=== PATIENT | male | born 1980 | race Caucasian/White ===

== ENCOUNTER 2018-12-29 18:47 | Emergency (ER) | payer MEDICARE ==
[~2018-12-29] VITALS: Ht 172.7 cm; Wt 63.5 kg
[2018-12-29] MEDS ORDERED: IV NORMAL SALINE 1000ML BAG 1,000 ML IV SCH (19:44)
[2018-12-29] MEDS ORDERED: ONDANSETRON PF 4 MG/2 ML VIAL. IV ONE (19:45)
[2018-12-29] MEDS ORDERED: KETOROLAC 15 MG/ML VIAL. IV ONE (19:45)
[2018-12-29] MEDS ORDERED: MORPHINE SULFATE 4 MG/ML VIAL. IV ONE (19:45)
--- NOTE | 2018-12-29 19:52 | PHYS DOC ---
Past Medical History Past Medical History: Anxiety, Bipolar, Depression Past Surgical History: No Surgical History Smoking: Cigarettes, Less than 1pk/day Alcohol Use: None Drug Use: Marijuana, Methamphetamine Adult General Chief Complaint Chief Complaint: FLANK PAIN HPI HPI Patient is a 38-year-old male that presents to the ER with left flank pain. Patient states he woke up with the pain this morning. It has persisted all day and will not go away. Patient is not tried any medications at home. Associated symptoms includes headache. Denies ever having a pain like this before. Pain is 10 out of 10 and sharp. States he has not defecated in a week. Review of Systems Review of Systems Constitutional: Denies fever or chills [] Eyes: Denies change in visual acuity, redness, or eye pain [] HENT: Denies nasal congestion or sore throat [] Respiratory: Denies cough or shortness of breath [] Cardiovascular: No additional information not addressed in HPI [] GI: Reports L flank pain, but denies nausea, vomiting, bloody stools or diarrhea [] : Denies dysuria or hematuria [] Musculoskeletal: Reports back pain (L flank) but denies joint pain [] Integument: Denies rash or skin lesions [] Neurologic: Reports headache but denies focal weakness or sensory changes [] Endocrine: Denies polyuria or polydipsia [] Complete systems were reviewed and found to be within normal limits, except as documented in this note. Current Medications Current Medications Current Medications Medications (Trade) Dose Ordered Sig/Jaci Start Time Stop Time Status Last Admin Dose Admin Ketorolac Tromethamine (Toradol 15mg Vial) 15 mg 1X ONCE 12/29/18 19:45 12/29/18 19:49 DC 12/29/18 20:02 15 MG Morphine Sulfate (Morphine Sulfate) 4 mg 1X ONCE 12/29/18 19:45 12/29/18 19:49 DC 12/29/18 20:01 4 MG Ondansetron HCl (Zofran) 4 mg 1X ONCE 12/29/18 19:45 12/29/18 19:49 DC 12/29/18 20:02 4 MG Sodium Chloride 1,000 ml @ 1,000 mls/hr Q1H 12/29/18 19:44 12/29/18 20:43 DC 12/29/18 20:02 1,000 MLS/HR Allergies Allergies Allergies Coded Allergies Type Severity Reaction Last Updated Verified No Known Drug Allergies 12/29/18 No Physical Exam Physical Exam Constitutional: Well developed, well nourished, appears in pain, non-toxic appearance. [] HENT: Normocephalic, atraumatic, bilateral external ears normal, oropharynx moist, no oral exudates, nose normal. [] Eyes: PERRLA, EOMI, conjunctiva normal, no discharge. Pupils are 2 bilaterally. Neck: Normal range of motion, no tenderness, supple, no stridor. [] Cardiovascular:Heart rate regular rhythm, no murmur [] Lungs & Thorax: Bilateral breath sounds clear to auscultation [] Abdomen: Soft, diffuse tenderness localized to the L flank and LUQ, no masses, no pulsatile masses. [] Skin: Warm, dry, no erythema, no rash. [] Back: No tenderness with the exception of CVA tenderness to the L side. [] Extremities: No tenderness, no cyanosis, no clubbing, ROM intact, no edema. [] Neurologic: Alert and oriented X 3, normal motor function, normal sensory function, no focal deficits noted. [] Psychologic: Affect normal, judgement normal, mood normal. [] Current Patient Data Vital Signs Vital Signs Date Time Temp Pulse Resp B/P (MAP) Pulse Ox O2 Delivery O2 Flow Rate FiO2 12/29/18 20:01 22 99 Room Air 12/29/18 19:00 97.7 98 122/89 (100) 97.7 Lab Values Laboratory Tests Test 12/29/18 19:25 12/29/18 19:56 Urine Collection Type Unknown Urine Color Yellow Urine Clarity Cloudy Urine pH 6.0 Urine Specific [place] 1.025 Urine Protein Negative mg/dL (NEG-TRACE) Urine Glucose (UA) Negative mg/dL (NEG) Urine Ketones (Stick) Negative mg/dL (NEG) Urine Blood Negative (NEG) Urine Nitrite Negative (NEG) Urine Bilirubin Negative (NEG) Urine Urobilinogen Dipstick 0.2 mg/dL (0.2 mg/dL) Urine Leukocyte Esterase Negative (NEG) Urine RBC Occ /HPF (0-2) Urine WBC Rare /HPF (0-4) Urine Bacteria 0 /HPF (0-FEW) Urine Mucus Marked /LPF Urine Opiates Screen Neg (NEG) Urine Methadone Screen Neg (NEG) Urine Barbiturates Neg (NEG) Urine Phencyclidine Screen Neg (NEG) Urine Amphetamine/Methamphetamine Neg (NEG) Urine Benzodiazepines Screen Neg (NEG) Urine Cocaine Screen Neg (NEG) Urine Cannabinoids Screen Neg (NEG) Urine Ethyl Alcohol Neg (NEG) White Blood Count 10.0 x10^3/uL (4.0-11.0) Red Blood Count 5.19 x10^6/uL (4.30-5.70) Hemoglobin 14.9 g/dL (13.0-17.5) Hematocrit 44.8 % (39.0-53.0) Mean Corpuscular Volume 86 fL (79-100) Mean Corpuscular Hemoglobin 29 pg (25-35) Mean Corpuscular Hemoglobin Concent 33 g/dL (31-37) Red Cell Distribution Width 14.7 % (11.5-14.5) H Platelet Count 302 x10^3/uL (140-400) Neutrophils (%) (Auto) 70 % (31-73) Lymphocytes (%) (Auto) 19 % (24-48) L Monocytes (%) (Auto) 10 % (0-9) H Eosinophils (%) (Auto) 1 % (0-3) Basophils (%) (Auto) 1 % (0-3) Neutrophils # (Auto) 6.9 x10^3uL (1.8-7.7) Lymphocytes # (Auto) 1.9 x10^3/uL (1.0-4.8) Monocytes # (Auto) 0.9 x10^3/uL (0.0-1.1) Eosinophils # (Auto) 0.1 x10^3/uL (0.0-0.7) Basophils # (Auto) 0.1 x10^3/uL (0.0-0.2) Sodium Level 138 mmol/L (136-145) Potassium Level 4.0 mmol/L (3.5-5.1) Chloride Level 100 mmol/L (98-107) Carbon Dioxide Level 29 mmol/L (21-32) Anion Gap 9 (6-14) Blood Urea Nitrogen 16 mg/dL (8-26) Creatinine 0.9 mg/dL (0.7-1.3) Estimated GFR (Cockcroft-Gault) 94.4 BUN/Creatinine Ratio 18 (6-20) Glucose Level 76 mg/dL (70-99) Calcium Level 9.5 mg/dL (8.5-10.1) Total Bilirubin 0.4 mg/dL (0.2-1.0) Aspartate Amino Transferase (AST) 17 U/L (15-37) Alanine Aminotransferase (ALT) 28 U/L (16-63) Alkaline Phosphatase 111 U/L (46-116) Total Protein 8.0 g/dL (6.4-8.2) Albumin 3.9 g/dL (3.4-5.0) Albumin/Globulin Ratio 1.0 (1.0-1.7) Lipase 145 U/L (73-393) Laboratory Tests 12/29/18 19:56 Laboratory Tests 12/29/18 19:56 EKG EKG [] Radiology/Procedures Radiology/Procedures []PATIENT: AZEB PLATA PACCOUNT: [id number]#: [id number] : 1980 LOCATION: ER AGE: 38 SEX: M EXAM STATUS: REG ER ORD. PHYSICIAN: EDWARD CHARLES APRN REASON: R Flank Pain, +CVA tenderness, R/O Kidney Stone PROCEDURE: CT ABDOMEN PELVIS WO CONTRAST EXAM: Abdomen and pelvis CT without intravenous contrast. HISTORY: Right flank pain. TECHNIQUE: Computed tomographic images of the abdomen and pelvis were obtained without contrast. Multiplanar reformatting was performed. *One or more of the following individualized dose reduction techniques were utilized for this examination: 1. Automated exposure control. 2. Adjustment of the mA and/or kV according to patient size. 3. Use of iterative reconstruction technique. COMPARISON: None. FINDINGS: Evaluation of the lower thorax demonstrates posterior dependent atelectasis. No hepatic lesion is seen. The gallbladder, pancreas, spleen and adrenal glands are unremarkable. There is a dilated left renal pelvis. No obstructing lesion is seen. There is a 7 mm stone within the lower pole of the left kidney. No contralateral renal or ureteral stone is seen. There is no appendicitis. There is a large amount of colonic stool. There is no evidence of bowel obstruction. There is urinary bladder wall thickening likely due to underdistention. There is a tiny focus of gas within the bladder likely due to recent catheterization. There is no lymphadenopathy. There is no suspicious osseous lesion. IMPRESSION: 1. Dilated left renal pelvis. This may be due to an extrarenal pelvis or component of chronic ureteropelvic junction obstruction. There is a nonobstructing left renal stone. There is no contralateral nephro ureterolithiasis or obstructive uropathy. 2. Mild bladder wall thickening likely due to underdistention. Correlate with urinalysis to exclude cystitis. 3. Large amount of colonic stool. Correlate for constipation. Electronically signed by: Charlotte Morse MD (12/29/2018 8:35 PM) [facility] Course & Med Decision Making Course & Med Decision Making Pertinent Labs and Imaging studies reviewed. (See chart for details) Discussed signs and symptoms with patient. Will give pain relief, fluids, CT scan, and labs/urine. Patient is agreeable to the plan of care. Labs are unremarkable. Patient has a 7 MM stone inside his Kidney non obst ructing. Patient also has constipation. Pain improved with pain medication in ER. Will d/c patient home. Dragon Disclaimer Dragon Disclaimer This electronic medical record was generated, in whole or in part, using a voice recognition dictation system. Departure Departure Impression: Primary Impression: Constipation Additional Impression: Renal stone Disposition: HOME, SELF-CARE Condition: STABLE Referrals: UNKNOWN PCP NAME (PCP) Patient Instructions: Constipation, Adult, [id number] Additional Instructions: Please take OTC Miralax as needed for constipation. If that doesn't work progress to OTC enema. Follow the label instructions. Problem Qualifiers Primary Impression: Constipation Constipation type: unspecified constipation type Qualified Codes: K59.00 - Constipation, unspecified EDWARD CHARLES APRN December 29, 2018 19:52
[2018-12-29 19:55] LABS: BILIRUBIN,URINE NEGATIVE (NEG); CLARITY,URINE CLOUDY; COLOR,URINE YELLOW; NITRITE,URINE NEGATIVE (NEG); PROTEIN,URINE NEGATIVE (NEG-TRACE); UROBILINOGEN,URINE 0.2 mg/dL (0.2 mg/dL)
[2018-12-29 19:59] LABS: AMPHETAMINE/METHAMPHETAMINE NEG (NEG); BARBITURATES NEG (NEG); BENZODIAZEPINES NEG (NEG); CANNABINOIDS NEG (NEG); COCAINE NEG (NEG); METHADONE NEG (NEG); OPIATES NEG (NEG); PHENCYCLIDINE NEG (NEG)
[2018-12-29 20:04] LABS: BACTERIA,URINE 0 /HPF (0-FEW); RBC,URINE OCC /HPF (0-2); WBC,URINE RARE /HPF (0-4)
[2018-12-29 20:04] LABS: BASO # 0.1 x10^3/uL (0.0-0.2); BASO % 1 % (0-3); EOS # 0.1 x10^3/uL (0.0-0.7); EOS % 1 % (0-3); HEMATOCRIT 44.8 % (39.0-53.0); HEMOGLOBIN 14.9 g/dL (13.0-17.5); LYMPH # 1.9 x10^3/uL (1.0-4.8); LYMPH % 19 % (24-48); MEAN CORPUSCULAR HEMOGLOBIN 29 pg (25-35); MEAN CORPUSCULAR HGB CONC 33 g/dL (31-37); MEAN CORPUSCULAR VOLUME 86 fL (79-100); MONO # 0.9 x10^3/uL (0.0-1.1); MONO % 10 % (0-9); NEUT # 6.9 x10^3uL (1.8-7.7); NEUT % 70 % (31-73); PLATELET COUNT 302 x10^3/uL (140-400); RED BLOOD COUNT 5.19 x10^6/uL (4.30-5.70); RED CELL DISTRIBUTION WIDTH 14.7 % (11.5-14.5)
[2018-12-29 20:11] LABS: CALCIUM 9.5 mg/dL (8.5-10.1); CREATININE 0.9 mg/dL (0.7-1.3); GFR 94.4
[2018-12-29 20:17] LABS: ALBUMIN 3.9 g/dL (3.4-5.0); TOTAL BILIRUBIN 0.4 mg/dL (0.2-1.0)
--- NOTE | 2018-12-29 20:39 | RAD ---
EXAM: Abdomen and pelvis CT without intravenous contrast. HISTORY: Right flank pain. TECHNIQUE: Computed tomographic images of the abdomen and pelvis were obtained without contrast. Multiplanar reformatting was performed. *One or more of the following individualized dose reduction techniques were utilized for this examination: 1. Automated exposure control. 2. Adjustment of the mA and/or kV according to patient size. 3. Use of iterative reconstruction technique. COMPARISON: None. FINDINGS: Evaluation of the lower thorax demonstrates posterior dependent atelectasis. No hepatic lesion is seen. The gallbladder, pancreas, spleen and adrenal glands are unremarkable. There is a dilated left renal pelvis. No obstructing lesion is seen. There is a 7 mm stone within the lower pole of the left kidney. No contralateral renal or ureteral stone is seen. There is no appendicitis. There is a large amount of colonic stool. There is no evidence of bowel obstruction. There is urinary bladder wall thickening likely due to underdistention. There is a tiny focus of gas within the bladder likely due to recent catheterization. There is no lymphadenopathy. There is no suspicious osseous lesion. IMPRESSION: 1. Dilated left renal pelvis. This may be due to an extrarenal pelvis or component of chronic ureteropelvic junction obstruction. There is a nonobstructing left renal stone. There is no contralateral nephro ureterolithiasis or obstructive uropathy. 2. Mild bladder wall thickening likely due to underdistention. Correlate with urinalysis to exclude cystitis. 3. Large amount of colonic stool. Correlate for constipation. Electronically signed by: Charlotte Morse MD (12/29/2018 8:35 PM) [facility]
[2018-12-29 21:15] VITALS: BP 107/77
== END 2018-12-29 21:20 | disposition home or self-care (01) ==
LOC: ER 18:47
DX: N20.0 Calculus of kidney (principal); K59.00 Constipation, unspecified; F31.9 Bipolar disorder, unspecified; F41.9 Anxiety disorder, unspecified; F17.210 Nicotine dependence, cigarettes, uncomplicated
CPT/HCPCS: 36415; 74176; 80053; 80307; 81001; 83690; 85025; 96374; 96375; 99285; J1885; J2270; J2405; J7030